=== PATIENT | female | born 1940 | race Caucasian/White ===

== ENCOUNTER 2023-09-03 10:15 | Observation (INO) ==
[2023-09-03 11:05] LABS: ABS Basophils 0.1 10^3/uL (0.0-0.1); ABS Eosinophils 0.4 10^3/uL (0.0-0.5); ABS Lymphocytes 1.1 10^3/uL (1.0-4.8); ABS Neutrophils 3.8 10^3/uL (1.5-7.6); ABS Nucleated RBC 0.01 10^3/ul; Eosinophil % 6.8 %; Hematocrit 44.4 % (35-45); Lymphocyte % 17.3 %; Mean Corpuscular Hemoglobin 32.4 pg (27-33); Mean Corpuscular Hgb Conc 33.7 g/dL (31-36); Mean Corpuscular Volume 96.1 fL (80-97); Mean Platelet Volume 8.2 fL (7.5-11.2); Nucleated Red Blood Cells % 0.2 %/100WBC (0.0-0.8); Platelet Count 219 10^3/uL (150-450); Red Blood Count 4.62 10^6/uL (3.63-4.92); Red Cell Distribution Width 13.4 % (12-17); White Blood Count 6.5 10^3/uL (3.8-11.8)
[2023-09-03 11:43] LABS: Albumin 3.9 g/dL (3.2-5.2); Albumin/Globulin Ratio 1.3 (1-3); Calcium 10.5 mg/dL (8.6-10.3); Creatinine, Serum 0.62 mg/dL (0.51-0.95); Potassium 4.4 mmol/L (3.5-5.0); Total Bilirubin 0.7 mg/dL (0.2-1.0); Total Protein 6.9 g/dL (6.4-8.9); eGFR CKD-EPI 87.8 (>60)
[2023-09-03 13:05] LABS: High Sensitivity Troponin 1 Hr 13 pg/mL (<15)
[2023-09-03] MEDS: Iodixanol (CONTRAST) 320 MG/ML 100 ML SDV IV ONE (13:30)
[2023-09-03] MEDS ORDERED: Polyethylene Glycol 3350 17 GM PACKET PO PRN (15:25)
[2023-09-03] MEDS ORDERED: Albuterol 2.5mg/3 ml (0.083%) NEB.SOLN INH PRN (16:59)
[2023-09-03] MEDS ORDERED: Dextrose 50% Syringe 50 ml 25 GM/50 ML SYRINGE IV PUSH PRN (17:04)
[2023-09-03] MEDS: Albuterol/Ipratropium NEB.SOL (2.5/0.5 MG) 3 ML NEB.SOLN INH SCH (17:06)
[2023-09-03] MEDS: Enoxaparin 40 MG/0.4 ML SYR SUBCUT SCH (17:28)
[2023-09-03] MEDS ORDERED: Fluticasone HFA 220 mcg(NF) MDI INH SCH (21:00)
[2023-09-04] MEDS: Iodixanol (CONTRAST) 320 MG/ML 100 ML SDV IV ONE (05:19)
[2023-09-04 07:21] LABS: ABS Basophils 0.1 10^3/uL (0.0-0.1); ABS Eosinophils 0.4 10^3/uL (0.0-0.5); ABS Lymphocytes 1.6 10^3/uL (1.0-4.8); ABS Monocytes 1.1 10^3/uL (0.0-0.9); ABS Neutrophils 3.5 10^3/uL (1.5-7.6); ABS Nucleated RBC 0.01 10^3/ul; Eosinophil % 6.5 %; Hematocrit 44.4 % (35-45); Hemoglobin 14.9 g/dL (11.5-14.3); Lymphocyte % 24.4 %; Mean Corpuscular Hemoglobin 32.4 pg (27-33); Mean Corpuscular Hgb Conc 33.6 g/dL (31-36); Mean Corpuscular Volume 96.4 fL (80-97); Nucleated Red Blood Cells % 0.2 %/100WBC (0.0-0.8); Platelet Count 207 10^3/uL (150-450); Red Blood Count 4.61 10^6/uL (3.63-4.92); Red Cell Distribution Width 13.2 % (12-17); White Blood Count 6.6 10^3/uL (3.8-11.8)
[2023-09-04 07:39] LABS: Calcium 10.3 mg/dL (8.6-10.3); Creatinine, Serum 0.53 mg/dL (0.51-0.95); Magnesium 1.6 mg/dL (1.9-2.7); Potassium 4.5 mmol/L (3.5-5.0); eGFR CKD-EPI 91.1 (>60)
[2023-09-04] MEDS: Magnesium Sulfate 2 gm BAG 2 GM/50 ML BAG IVPB ONE (10:10)
[2023-09-04] MEDS: Senna TAB 8.6 mg TAB PO SCH (10:11)
[2023-09-04 13:42] VITALS: BP 137/79
[2023-09-04] MEDS ORDERED: SPIRIVA Respimat (tiotropium) 2.5 mcg/inh Inhaler INH SCH (15:00)
[2023-09-04] MEDS ORDERED: Mometasone 220 MCG MDI INH SCH (19:00)
== END 2023-09-04 15:45 | disposition home or self-care (01) ==
LOC: ED 10:15 → EDHOLD 10:15 → MED 19:42
PROVIDERS: ADMIT Hospitalist; ATTEND Hospitalist

== ENCOUNTER 2023-10-24 13:13 | Inpatient (IN) ==
[2023-10-24 14:02] LABS: ABS Basophils 0.1 10^3/uL (0.0-0.1); ABS Eosinophils 0.4 10^3/uL (0.0-0.5); ABS Lymphocytes 1.3 10^3/uL (1.0-4.8); ABS Monocytes 0.8 10^3/uL (0.0-0.9); ABS Neutrophils 4.5 10^3/uL (1.5-7.6); Eosinophil % 5.6 %; Hematocrit 43.2 % (35-45); Hemoglobin 14.3 g/dL (11.5-14.3); Lymphocyte % 17.9 %; Mean Corpuscular Hemoglobin 31.3 pg (27-33); Nucleated Red Blood Cells % 0.1 %/100WBC (0.0-0.8); Platelet Count 257 10^3/uL (150-450); Red Blood Count 4.55 10^6/uL (3.63-4.92); Red Cell Distribution Width 14.6 % (12-17); White Blood Count 7.1 10^3/uL (3.8-11.8)
[2023-10-24] MEDS: Albuterol/Ipratropium NEB.SOL (2.5/0.5 MG) 3 ML NEB.SOLN INH ONE (14:30)
[2023-10-24] MEDS: Acetylcysteine INHALATION SOL 200 MG/ML NEB.SOLN 10 ML INH ONE (14:31)
[2023-10-24 14:55] LABS: Albumin/Globulin Ratio 1.4 (1-3); C Reactive Protein 4.08 mg/L (<8.01); Calcium 10.5 mg/dL (8.6-10.3); Creatinine, Serum 0.53 mg/dL (0.51-0.95); Globulin 2.9 g/dL (2-4); Magnesium 1.4 mg/dL (1.9-2.7); Potassium 4.1 mmol/L (3.5-5.0); Total Bilirubin 0.7 mg/dL (0.2-1.0); Total Protein 6.9 g/dL (6.4-8.9); eGFR CKD-EPI 91.1 (>60)
[2023-10-24] MEDS: Piperacillin/Tazobac 3.375 BAG 3.375 GM/100 ML BAG IV ONE (15:04)
[2023-10-24] MEDS: methylPREDNISolone SOD SUCC 125 mg 2 ML VIAL IV ONE (15:05)
[2023-10-24] MEDS ORDERED: Dextrose 50% Syringe 50 ml 25 GM/50 ML SYRINGE IV PUSH PRN (17:52)
[2023-10-24] MEDS ORDERED: Zosyn per Pharmacy NOTE FOLLOW UP SCH (19:00)
[2023-10-24] MEDS: Iodixanol (CONTRAST) 320 MG/ML 100 ML SDV IV SCH (19:16)
[2023-10-24] MEDS: Enoxaparin 40 MG/0.4 ML SYR SUBCUT SCH (20:45)
[2023-10-24] MEDS: ZOSYN 3.375 GM Q8H per EXTENDED INFUSION IV SCH (20:46)
[2023-10-24] MEDS: Magnesium Sulfate IV 1GM/100ML 1 GM/100 ML BAG IV ONE (20:46)
[2023-10-24] MEDS: Albuterol/Ipratropium NEB.SOL (2.5/0.5 MG) 3 ML NEB.SOLN INH SCH (21:12)
[2023-10-24] MEDS: Magnesium Sulfate 2 gm BAG 2 GM/50 ML BAG IVPB ONE (21:37)
[2023-10-25 08:46] LABS: Calcium 10.1 mg/dL (8.6-10.3); Creatinine, Serum 0.6 mg/dL (0.51-0.95); Magnesium 2.1 mg/dL (1.9-2.7); Potassium 4.3 mmol/L (3.5-5.0); eGFR CKD-EPI 88.5 (>60)
[2023-10-25] MEDS: Sodium Chloride(INHALANT) 7% 4 ML NEB.SOLN INH SCH (13:48)
[2023-10-26 07:15] LABS: ABS Eosinophils 0.1 10^3/uL (0.0-0.5); ABS Lymphocytes 1.3 10^3/uL (1.0-4.8); ABS Monocytes 1.3 10^3/uL (0.0-0.9); ABS Neutrophils 5.8 10^3/uL (1.5-7.6); Hematocrit 41.9 % (35-45); Hemoglobin 14.3 g/dL (11.5-14.3); Lymphocyte % 15.7 %; Mean Corpuscular Hemoglobin 32.5 pg (27-33); Mean Corpuscular Hgb Conc 34.1 g/dL (31-36); Mean Corpuscular Volume 95.4 fL (80-97); Mean Platelet Volume 8.4 fL (7.5-11.2); Platelet Count 269 10^3/uL (150-450); Red Blood Count 4.39 10^6/uL (3.63-4.92); Red Cell Distribution Width 14.6 % (12-17); White Blood Count 8.5 10^3/uL (3.8-11.8)
[2023-10-26 07:47] LABS: Calcium 10.3 mg/dL (8.6-10.3); Creatinine, Serum 0.64 mg/dL (0.51-0.95); Potassium 4.2 mmol/L (3.5-5.0); eGFR CKD-EPI 87.1 (>60)
[2023-10-26] MEDS: ZOSYN 3.375 GM Q8H per EXTENDED INFUSION IV SCH (09:46)
[2023-10-26] MEDS: Albuterol/Ipratropium NEB.SOL (2.5/0.5 MG) 3 ML NEB.SOLN INH PRN (15:16)
[2023-10-27] MEDS: Sodium Chloride(INHALANT) 7% 4 ML NEB.SOLN INH SCH (07:55)
[2023-10-27] MEDS: Albuterol/Ipratropium NEB.SOL (2.5/0.5 MG) 3 ML NEB.SOLN INH SCH (07:55)
[2023-10-27] MEDS: Acetylcysteine INHALATION SOL 200 MG/ML NEB.SOLN 10 ML INH ONE (17:41)
[2023-10-28 06:59] LABS: ABS Basophils 0.1 10^3/uL (0.0-0.1); ABS Eosinophils 0.4 10^3/uL (0.0-0.5); ABS Lymphocytes 1.1 10^3/uL (1.0-4.8); ABS Monocytes 0.9 10^3/uL (0.0-0.9); ABS Neutrophils 4.7 10^3/uL (1.5-7.6); ABS Nucleated RBC 0.01 10^3/ul; Eosinophil % 6.1 %; Hematocrit 39.8 % (35-45); Hemoglobin 13.5 g/dL (11.5-14.3); Lymphocyte % 15.5 %; Mean Corpuscular Hemoglobin 32.6 pg (27-33); Mean Corpuscular Volume 95.8 fL (80-97); Mean Platelet Volume 8.5 fL (7.5-11.2); Nucleated Red Blood Cells % 0.1 %/100WBC (0.0-0.8); Platelet Count 233 10^3/uL (150-450); Red Blood Count 4.15 10^6/uL (3.63-4.92); Red Cell Distribution Width 14.8 % (12-17); White Blood Count 7.2 10^3/uL (3.8-11.8)
[2023-10-28 07:15] LABS: Calcium 9.6 mg/dL (8.6-10.3); Creatinine, Serum 0.52 mg/dL (0.51-0.95); Potassium 4.4 mmol/L (3.5-5.0); eGFR CKD-EPI 91.6 (>60)
[2023-10-28 07:57] LABS: Magnesium 1.6 mg/dL (1.9-2.7)
[2023-10-28] MEDS: Magnesium Sulfate 2 gm BAG 2 GM/50 ML BAG IVPB ONE (09:53)
[2023-10-28] MEDS: Polyethylene Glycol 3350 17 GM PACKET PO SCH (12:02)
[2023-10-28] MEDS: Senna TAB 8.6 mg TAB PO SCH (12:03)
[2023-10-28] MEDS ORDERED: Senna TAB 8.6 mg TAB PO PRN (15:42)
[2023-10-28] MEDS ORDERED: Polyethylene Glycol 3350 17 GM PACKET PO PRN (15:42)
[2023-10-28] MEDS: Magnesium CITRATE LIQ 300 ML BTL PO ONE (15:49)
[2023-10-28] MEDS: CMC:Leflunomide 10 mg TAB (NF) PO SCH (16:44)
[2023-10-28] MEDS: Acetylcysteine INH SOL (RT) 200 MG/ML 4 ML VIAL INH ONE (17:46)
[2023-10-28] MEDS: Magnesium Sulfate IV 1GM/100ML 1 GM/100 ML BAG IV ONE (18:25)
[2023-10-29] MEDS: Metoprolol Tartrate 5 mg VIAL 5 ml VIAL (1 mg/ml) IV ONE (02:22)
[2023-10-29 06:06] LABS: ABS Basophils 0.1 10^3/uL (0.0-0.1); ABS Eosinophils 0.6 10^3/uL (0.0-0.5); ABS Lymphocytes 1.3 10^3/uL (1.0-4.8); ABS Neutrophils 4.9 10^3/uL (1.5-7.6); Eosinophil % 8.1 %; Hematocrit 38.5 % (35-45); Hemoglobin 13.1 g/dL (11.5-14.3); Lymphocyte % 16.7 %; Mean Corpuscular Hemoglobin 32.6 pg (27-33); Mean Corpuscular Hgb Conc 34.1 g/dL (31-36); Mean Corpuscular Volume 95.5 fL (80-97); Mean Platelet Volume 8.5 fL (7.5-11.2); Nucleated Red Blood Cells % 0.1 %/100WBC (0.0-0.8); Platelet Count 234 10^3/uL (150-450); Red Blood Count 4.03 10^6/uL (3.63-4.92); Red Cell Distribution Width 15.1 % (12-17); White Blood Count 7.9 10^3/uL (3.8-11.8)
[2023-10-30] MEDS ORDERED: Propofol 10 MG/ML 20 ML BTL ONE (11:44)
[2023-10-30] MEDS ORDERED: Lidocaine 2% PF 5 ML VIAL ONE (13:27)
[2023-10-30] MEDS ORDERED: fentaNYL 100 mcg/2 ml 50 MCG/ML VIAL ONE (13:27)
[2023-10-30] MEDS ORDERED: Midazolam 2 mg/2 ml VIAL 1 mg/ml 2 ml VIAL (2 mg) ONE (13:27)
[2023-10-30] MEDS ORDERED: Rocuronium 50 mg VIAL 10 mg/ml 5 ml VIAL (50 mg) ONE (13:33)
[2023-10-30] MEDS ORDERED: Benzocaine/Butamben/Tetracain (CETACAINE - SINGLE USE) 5 gm TOPICAL ONE (13:47)
[2023-10-30] MEDS ORDERED: Ondansetron 4 mg VIAL 2 MG/ML 2 ml VIAL ONE (14:23)
[2023-10-30] MEDS ORDERED: Dexamethasone IV 4 MG/ML VIAL 1 ml VIAL ONE (14:23)
[2023-10-30] MEDS: Senna TAB 8.6 mg TAB PO SCH (21:31)
[2023-10-31 07:30] LABS: Calcium 9.7 mg/dL (8.6-10.3); Creatinine, Serum 0.54 mg/dL (0.51-0.95); Magnesium 1.7 mg/dL (1.9-2.7); Potassium 5.2 mmol/L (3.5-5.0); eGFR CKD-EPI 90.7 (>60)
[2023-10-31] MEDS: Polyethylene Glycol 3350 17 GM PACKET PO SCH (08:10)
[2023-10-31 08:11] LABS: Rapid COVID-19 Molecular Undetected (Undetected)
[2023-10-31 09:28] VITALS: BP 118/61
[2023-10-31] MEDS: SODIUM ZIRCONIUM CYCLOSILICATE 5 GM PACKET PO SCH (11:19)
== END 2023-10-31 11:15 | DRG 189 ==
LOC: ED 13:13 → SUATTDRO 16:06 → EDHOLD 16:06 → MED 17:29
PROVIDERS: ADMIT Hospitalist; ATTEND Internal Medicine